=== PATIENT | female | born 2000 | race African-American/Black ===

== ENCOUNTER 2021-02-19 18:47 | Emergency (ER) | payer MEDICAID, OTHER ==
[~2021-02-19] VITALS: Ht 177.8 cm; Wt 137.1 kg
[~2021-02-19 18:47] MED LIST: NOCURR
[2021-02-19 19:32] VITALS: BP 133/69
== END 2021-02-19 23:03 | disposition home or self-care (01) ==
LOC: EMS 18:50
DX: F20.9 Schizophrenia, unspecified (principal); F12.90 Cannabis use, unspecified, uncomplicated
CPT/HCPCS: 99284; Z7502

== ENCOUNTER 2022-08-28 04:26 | Inpatient (IN) | payer MEDICAID ==
[~2022-08-28] VITALS: Ht 170.2 cm; Wt 134.3 kg
[2022-08-28] MEDS ORDERED: HALOPERIDOL 5 MG TABLET PO PRN (06:45)
[2022-08-28 08:29] VITALS: BP 141/80; PULSE 98; RESP 18; TEMP 97.7; O2SAT 97
[2022-08-28 08:52] LABS: GLUCOMETER DEV NAME(LOC) POC.BV
[2022-08-28] MEDS: LORazepam 2 MG TABLET PO PRN (20:14)
[2022-08-28 20:29] VITALS: BP 144/82; PULSE 80; RESP 19; TEMP 97.7; O2SAT 100
[2022-08-28] MEDS ORDERED: BENZOCAINE/MENTHOL LOZENGE PO PRN (21:30)
[2022-08-28] MEDS ORDERED: ONDANSETRON HCL 4 MG TABLET PO PRN (21:30)
[2022-08-28] MEDS ORDERED: MAG HYDROX/AL HYDROX/SIMETH ES 30 ML SUSPENSION UDCUP PO PRN (21:30)
[2022-08-28] MEDS ORDERED: DOCUSATE SODIUM 100 MG CAPSULE PO PRN (21:30)
[2022-08-28] MEDS ORDERED: LOPERAMIDE HCL 2 MG CAPSULE PO PRN (21:30)
[2022-08-28] MEDS ORDERED: CloNIDine HCL 0.1 MG TABLET PO PRN (21:30)
[2022-08-28] MEDS ORDERED: BACITRACIN 28 GM OINTMENT TP PRN (21:30)
[2022-08-28] MEDS ORDERED: ALBUTEROL SULFATE HFA 90 MCG/PUFF 8 GM INHALER IH PRN (21:30)
[2022-08-28] MEDS ORDERED: IBUPROFEN 600 MG TABLET PO PRN (21:30)
[2022-08-28] MEDS ORDERED: PETROLATUM,WHITE 28 GM JELLY TP PRN (21:30)
[2022-08-28] MEDS ORDERED: OMEPRAZOLE 20 MG CAPSULE PO PRN (21:30)
[2022-08-28] MEDS ORDERED: ACETAMINOPHEN 325 MG TABLET PO PRN (21:30)
[2022-08-28] MEDS ORDERED: MAGNESIUM HYDROXIDE SUSPENSION 30 ML UDCUP PO PRN (21:30)
[2022-08-29 08:28] VITALS: BP 128/88; PULSE 99; RESP 18; TEMP 98; O2SAT 100
[2022-08-29 08:43] LABS: BASOPHILS % (AUTO) 0.5 % (0.0-2.0); EOSINOPHILS % (AUTO) 4.6 % (1.0-6.0); HEMOGLOBIN 10.9 g/dL (12.0-16.0); LYMPHOCYTES # (AUTO) 3.1 K/uL (1.0-4.8); LYMPHOCYTES % (AUTO) 33.8 % (22.0-44.0); MEAN CORPUSCULAR HEMOGLOBIN 24.8 pg (26.0-34.0); MEAN CORPUSCULAR VOLUME 78 fL (80-100); MONOCYTES # (AUTO) 0.6 K/uL (0.1-1.0); MONOCYTES % (AUTO) 6.8 % (2.0-9.0); NEUTROPHILS % (AUTO) 54.3 % (40.0-70.0); PLATELET COUNT (AUTO) 350 K/uL (150-450); RED BLOOD CELL COUNT(AUTO) 4.39 MIL/uL (4.00-5.20); RED CELL DISTRIBUTION WIDTH 16.2 % (11.5-14.5)
[2022-08-29 09:06] LABS: ALANINE AMINOTRANSFERASE 18 U/L (12-78); ALBUMIN 3.2 g/dL (3.4-5.0); ALKALINE PHOSPHATASE 96 U/L (46-116); ANION GAP 10 mmol/L (8-16); ASPARTATE AMINOTRANSFERASE 15 U/L (15-37); BILIRUBIN,TOTAL 0.3 mg/dL (0.1-1.0); CALCIUM, TOTAL 8.3 mg/dL (8.8-10.5); CARBON DIOXIDE 27 mmol/L (22-29); CHLORIDE 102 mmol/L (98-107); CHOL/HDL RATIO 2.5 (3.9-5.7); CHOLESTEROL 119 mg/dL (131-200); CREATININE 0.61 mg/dL (0.60-1.30); GLOMERULAR FILTR. RATE CALC > 60 mL/min (>60); GLUCOSE,RANDOM 85 mg/dL (70-110); HDL CHOLESTEROL 47 mg/dL (40-60); LDL CHOL (CALC.) 63 mg/dL (0-130); POTASSIUM 3.8 mmol/L (3.5-5.1); SODIUM SERUM 139 mmol/L (136-145); TOTAL PROTEIN, SERUM 7.7 g/dL (6.4-8.2); TRIGLYCERIDES 47 mg/dL (15-150)
[2022-08-29 09:47] LABS: HEMOGLOBIN A1C 5.7 % (3.8-5.6)
[2022-08-29 20:18] VITALS: BP 139/67; PULSE 101; RESP 18; TEMP 98.2; O2SAT 97
[2022-08-29] MEDS: ZOLPIDEM TARTRATE 10 MG TABLET PO PRN (22:41)
[2022-08-30 08:07] LABS: HEPATITIS C AB (EIA) Non Reactive (Non Reactive)
[2022-08-30 08:21] VITALS: BP 121/69; PULSE 97; RESP 19; TEMP 98.6
[2022-08-30 21:01] VITALS: BP 140/90; PULSE 97; RESP 18; TEMP 98.1; O2SAT 98
[2022-08-31 08:16] VITALS: BP 136/75; PULSE 101; RESP 17; TEMP 98.1
[2022-08-31 08:55] VITALS: PULSE 95; O2SAT 99
[2022-08-31 20:03] VITALS: BP 141/86; PULSE 94; RESP 17; TEMP 97.7; O2SAT 100
[2022-08-31] MEDS: ZOLPIDEM TARTRATE 10 MG TABLET PO PRN (21:30)
[2022-09-01 08:38] VITALS: BP 134/61; PULSE 94; RESP 18; TEMP 98.2; O2SAT 100
[2022-09-01 20:17] VITALS: BP 125/92; PULSE 101; RESP 18; TEMP 98; O2SAT 97
[2022-09-02 08:29] VITALS: BP 136/68; PULSE 105; RESP 18; TEMP 97.3
[2022-09-02] MEDS: LORazepam 2 MG TABLET PO PRN (08:38)
[2022-09-02] MEDS ORDERED: PALI234D IM (11:35)
[2022-09-18] MEDS ORDERED: PALIPERIDONE PALMITATE 234 MG/1.5 ML SYRINGE IM SCH (09:00)
== END 2022-09-02 17:59 | disposition home or self-care (01) | DRG 750 ==
LOC: B2S 05:30
PROVIDERS: ADMIT Psychiatry & Neurology Psychiatry; ATTEND Psychiatry & Neurology Psychiatry
DX: F25.9 Schizoaffective disorder, unspecified (principal); E66.9 Obesity, unspecified; Z20.822 Contact with and (suspected) exposure to COVID-19; F41.9 Anxiety disorder, unspecified; G47.00 Insomnia, unspecified; K59.00 Constipation, unspecified; R03.0 Elevated blood-pressure reading, without diagnosis of hypertension; Z68.42 Body mass index [BMI] 45.0-49.9, adult; Z72.0 Tobacco use
CPT/HCPCS: 80053; 80061; 83036; 85025; 86803; 87340